=== PATIENT | male | born 1970 | race Caucasian/White ===

== ENCOUNTER 2016-12-18 12:12 | Day surgery (SDC) | payer BC ==
[~2016-12-18 12:12] MED LIST: ACETAMINOPHEN WITH CODEINE 1 EACH TABLET PO PRN; GENTAMICIN SULFATE 80 MG in DEXTROSE 5 % IN WATER 100 ML IV PRN; metroNIDAZOLE/SODIUM CHLORIDE 100 ML IV PRN
[2016-12-18] MEDS ORDERED: RINGERS SOLUTION,LACTATED 1,000 ML IV ONE ×2 (12:50→14:00)
[2016-12-18] MEDS ORDERED: LIDOCAINE HCL 50 ML VIAL IJ ONE (13:10)
[2016-12-18] MEDS ORDERED: MORPHINE SULFATE 2 MG/ML DISP.SYRIN IV ONE (15:00)
[2016-12-18 16:06] VITALS: BP 130/84
== END 2016-12-18 12:13 | disposition home or self-care (01) ==
LOC: AMB 12:12
PROVIDERS: ATTEND Urology
PROC: 0V903ZX Drainage of Prostate, Percutaneous Approach, Diagnostic (ICD-10-PCS; principal; 2016-12-18 13:00)
DX: N41.1 Chronic prostatitis (principal); R97.20 Elevated prostate specific antigen [PSA]; E66.9 Obesity, unspecified; Z68.31 Body mass index [BMI] 31.0-31.9, adult